=== PATIENT | female | born 1975 | race Caucasian/White ===

== ENCOUNTER 2017-08-21 15:50 | Emergency (ER) | payer MEDICAID, SELFPAY ==
[2017-08-21 16:09] VITALS: BP 113/89; PULSE 98; RESP 20; TEMP 36.8; O2SAT 100; BMI 30.1
[2017-08-21 16:23] LABS: UTC Influenza A Antigen Negative (Negative); UTC Influenza B Antigen Negative (Negative); UTC Strep Screen (Rapid) Negative (Negative)
--- NOTE | 2017-08-21 16:44 | HMH.EDUTC ---
[facility] [place] [facility] Disposition Clinical Impression: Viral upper respiratory illness Disposition: Home, Self-Care Condition on Discharge: Good Instructions: DI for Viral Upper Respiratory Infection -- Adult Additional Instructions: * No sign of bacterial infection. Likely viral. Virus can take 7-14 days to run their course. This could potentially be the flu with an early false negative test as we discussed. Remember what I said about the flu symptoms/length of illness of flu versus most typical viruses. Be sure to follow up for new or worsening symptoms. * Monitor Temp. Tylenol every 4 hours as needed no more then 5 times a day or 4000mg in 24 hours and/or ibuprofen every 6 hours as needed no more then 3200mg in 24 hours (as long as your primary care doctor has told you that it is ok to take both) for fever/aches/pain. ER if fever no less than 101 despite tylenol and ibuprofen * Encourage fluids, water, gatorade, powerade, pedialyte if infant/toddler/child * warm salt water gargles * warm fluids * sore throat lozenges * sleep elevated * humidifier/vaporizer * OTC cold/flu/sinus medication is ok but pick one. Do not take multiple different ones as they have similar ingredients and you can overdose on cold medication * * Your throat swab was sent for culture. Those results are typically sent to your primary care. Be sure to follow up in 2-3 days if no improvement so they can review those results and treat if necessary. If you don't have primary care, I recommend you get one but in the mean time, you will have to return to a walk in clinic. IMMEDIATELY for new or worsening symptoms OR no noticeable improvement over the next 48-72 hours. 911 for difficulty breathing or swallowing. Forms: Work/School Release Time of Disposition: 16:54 Medical Decision Making Vital Signs: 08/21/17 16:09 Temperature 98.3 F Temperature Source Temporal Artery Scan Pulse Rate [Right] 98 H Respiratory Rate 20 Blood Pressure [Right Arm] 113/89 Blood Pressure Mean [Right Arm] 97 Blood Pressure Source [Right Arm] Automatic Cuff Blood Pressure Position [Right Arm] Sitting 02 Sat by Pulse Oximetry 100 Oxygen Delivery Method Room Air - Lab Data Lab results reviewed: Yes: I reviewed the patient's lab results. Lab Results 08/21/17 16:20: Influenza Type A Ag Negative, Influenza Type B Ag Negative, Strep Scn Rapid Clinic Negative Orders (Tests/Meds): ORDERS Category Date Time Status Strep Screen Confirmation Stat Micro 08/21/17 16:20 Received - Alberto Inquiry Pt receiving controlled substance: No [facility] [place] [facility] HPI - General Stated complaint: SORE THROAT,COUGH Time Seen by Provider: 08/21/17 16:44 Mode of Arrival: Ambulatory Source of Information: Patient Limitations: No Limitations Description of Symptoms (Recalled from Triage Doc. by RN): SORE THROAT, HEADACHE, COUGH HEENT Symptoms (Recalled from RN notes): Yes Resp Symptoms (Recalled from RN notes): No Skin Symptoms (Recalled from RN notes): No MS Symptoms (Recalled from RN notes): No Functional Status (Recalled from RN notes): N - History of Present Illness Provider Complaint: c/o sore throat, AMAYA, cough since yesterday. Exposed to flu at work. [place] cold and flu helping somewhat . headache intermittent. [place] feverish yesterday. No aches, chills. Nonprod cough. No SOA, wheezing. - Related Data Home Medications Medication Instructions Recorded Confirmed Albuterol Sulfate [Albuterol HFA 2 puffs INHALATION DAILY 08/21/17 08/21/17 Inhaler] Gabapentin [Gabapentin 100mg Cap] 100 mg PO DAILY 08/21/17 08/21/17 hydroCHLOROthiazide [HCTZ 25mg 25 mg PO DAILY 08/21/17 08/21/17 tab] Allergies Allergy/AdvReac Type Severity Reaction Status Date / Time codeine [CODEINE] Allergy Mild Verified 08/21/17 16:13 - Worker's Comp Is this a Worker's Comp case?: No [facility] History I have reviewed the patient's past medical history: Yes Medical History: Reports:: Asthma, Hy
--- NOTE | 2017-08-21 16:49 | ED_ITS ---
[facility] [place] Disposition Clinical Impression: Viral upper respiratory illness Disposition: Home, Self-Care Condition on Discharge: Good Instructions: DI for Viral Upper Respiratory Infection -- Adult Additional Instructions: * No sign of bacterial infection. Likely viral. Virus can take 7-14 days to run their course. This could potentially be the flu with an early false negative test as we discussed. Remember what I said about the flu symptoms/ length of illness of flu versus most typical viruses. Be sure to follow up for new or worsening symptoms. * Monitor Temp. Tylenol every 4 hours as needed no more then 5 times a day or 4000mg in 24 hours and/or ibuprofen every 6 hours as needed no more then 3200mg in 24 hours (as long as your primary care doctor has told you that it is ok to take both) for fever/aches/pain. ER if fever no less than 101 despite tylenol and ibuprofen * Encourage fluids, water, gatorade, powerade, pedialyte if infant/toddler/ child * warm salt water gargles * warm fluids * sore throat lozenges * sleep elevated * humidifier/vaporizer * OTC cold/flu/sinus medication is ok but pick one. Do not take multiple different ones as they have similar ingredients and you can overdose on cold medication * * Your throat swab was sent for culture. Those results are typically sent to your primary care. Be sure to follow up in 2-3 days if no improvement so they can review those results and treat if necessary. If you don't have primary care , I recommend you get one but in the mean time, you will have to return to a walk in clinic. IMMEDIATELY for new or worsening symptoms OR no noticeable improvement over the next 48-72 hours. 911 for difficulty breathing or swallowing. Forms: Work/School Release Time of Disposition: 16:54 Medical Decision Making Vital Signs: 08/21/17 16:09 Temperature 98.3 F Temperature Source Temporal Artery Scan Pulse Rate [Right] 98 H Respiratory Rate 20 Blood Pressure [Right Arm] 113/89 Blood Pressure Mean [Right Arm] 97 Blood Pressure Source [Right Arm] Automatic Cuff Blood Pressure Position [Right Arm] Sitting 02 Sat by Pulse Oximetry 100 Oxygen Delivery Method Room Air - Lab Data Lab results reviewed: Yes: I reviewed the patient's lab results. Lab Results 08/21/17 16:20: Influenza Type A Ag Negative, Influenza Type B Ag Negative, Strep Scn Rapid Clinic Negative Orders (Tests/Meds): ORDERS Category Date Time Status Strep Screen Confirmation Stat Micro 08/21/17 16:20 Received - Alberto Inquiry Pt receiving controlled substance: No [facility] [place] HPI - General Stated complaint: SORE THROAT,COUGH Time Seen by Provider: 08/21/17 16:44 Mode of Arrival: Ambulatory Source of Information: Patient Limitations: No Limitations Description of Symptoms (Recalled from Triage Doc. by RN): SORE THROAT, HEADACHE , COUGH HEENT Symptoms (Recalled from RN notes): Yes Resp Symptoms (Recalled from RN notes): No Skin Symptoms (Recalled from RN notes): No MS Symptoms (Recalled from RN notes): No Functional Status (Recalled from RN notes): N - History of Present Illness Provider Complaint: c/o sore throat, AMAYA, cough since yesterday. Exposed to flu at work. [place] cold and flu helping somewhat . headache intermittent. [place] feverish yesterday. No aches, chills. Nonprod cough. No SOA, wheezing. - Related Data Home Medications Medication Instructions Recorded Confirmed
== END 2017-08-21 17:11 | disposition home or self-care (01) ==
PROVIDERS: Emergency Provider Nurse Practitioner Family
DX: J06.9 Acute upper respiratory infection, unspecified (principal); J45.909 Unspecified asthma, uncomplicated; I10 Essential (primary) hypertension; F17.210 Nicotine dependence, cigarettes, uncomplicated; Z79.899 Other long term (current) drug therapy
CPT/HCPCS: 87804; 87880; 99202